=== PATIENT | female | born 1965 | race American Indian/Alaskan Native ===

== ENCOUNTER 2019-10-22 07:16 | Emergency (ER) | payer BC ==
[2019-10-22 07:57] VITALS: BP 171/106
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
== END 2019-10-22 11:31 | disposition home or self-care (01) ==
LOC: ED 07:16
DX: M25.512 Pain in left shoulder (principal); I10 Essential (primary) hypertension; Z79.899 Other long term (current) drug therapy; V49.49XA Driver injured in collision with other motor vehicles in traffic accident, initial encounter; Y93.89 Activity, other specified; Y92.488 Other paved roadways as the place of occurrence of the external cause; Y99.8 Other external cause status
CPT/HCPCS: 99282

== ENCOUNTER 2021-02-28 22:19 | Emergency (ER) | payer BC ==
[2021-03-01 00:01] LABS: Amorphous Crystals,Urine Few; Bacteria,Urine 1+ /HPF (Negative); Bilirubin,Urine NEG (Negative); Blood,Urine LG (Negative); Color,Urine Yellow (Yellow); Mucus,Urine FEW /HPF; Urobilinogen,Urine < 2.0 mg/dL (<2.0)
--- NOTE | 2021-03-01 02:51 | Emergency Department Report ---
ED Female HPI - General Chief complaint: Abdominal Pain Stated complaint: BLOOD IN URINE/BACK&ABD PAIN Time Seen by Provider: 03/01/21 01:12 Source: patient Mode of arrival: Ambulatory Limitations: No Limitations - History of Present Illness MD Complaint: dysuria, pelvic pain -: Gradual, days(s) (3) - Related Data Previous Rx's Medication Instructions Recorded Last Taken Type Cyclobenzaprine [Flexeril] 10 mg PO QHS PRN #20 tablet 10/22/19 Unknown Rx Ibuprofen [Motrin 800 MG tab] 800 mg PO Q8HR PRN #30 tablet 10/22/19 Unknown Rx Ciprofloxacin HCl 500 mg PO BID #6 tablet 03/01/21 Unknown Rx Phenazopyridine [Pyridium] 200 mg PO TID #9 tab 03/01/21 Unknown Rx Allergies Allergy/AdvReac Type Severity Reaction Status Date / Time No Known Allergies Allergy Verified 02/28/21 22:24 ED Review of Systems ROS: Stated complaint: BLOOD IN URINE/BACK&ABD PAIN Other details as noted in HPI ED Past Medical Hx - Past Medical History Hx Hypertension: Yes - Surgical History Past Surgical History?: No - Medications Home Medications: Home Medications Medication Instructions Recorded Confirmed Last Taken Type Cyclobenzaprine [Flexeril] 10 mg PO QHS PRN #20 tablet 10/22/19 Unknown Rx Ibuprofen [Motrin 800 MG tab] 800 mg PO Q8HR PRN #30 tablet 10/22/19 Unknown Rx Ciprofloxacin HCl 500 mg PO BID #6 tablet 03/01/21 Unknown Rx Phenazopyridine [Pyridium] 200 mg PO TID #9 tab 03/01/21 Unknown Rx ED Physical Exam - General Limitations: No Limitations ED Course Vital Signs 02/28/21 22:22 Temperature 98.1 F Pulse Rate 72 Respiratory 17 Rate Blood Pressure 160/96 [Right] O2 Sat by Pulse 100 Oximetry Critical care attestation.: If time is entered above; I have spent that time in minutes in the direct care of this critically ill patient, excluding procedure time. ED Disposition Disposition: 01 HOME / SELF CARE / HOMELESS Condition: Stable Instructions: Dysuria, Flank Pain, Adult, Abdominal Pain (ED) Prescriptions: Ciprofloxacin HCl 500 mg PO BID #6 tablet Phenazopyridine [Pyridium] 200 mg PO TID #9 tab Referrals: MARÍA HERMAN MD [Staff Physician] - 3-5 Days
[2021-03-01 05:48] VITALS: BP 150/90
== END 2021-03-01 03:35 | disposition home or self-care (01) ==
LOC: ED 22:19
DX: R30.0 Dysuria (principal); R10.2 Pelvic and perineal pain; I10 Essential (primary) hypertension
CPT/HCPCS: 81001; 99283